=== PATIENT | female | born 1940 | race African-American/Black ===

== ENCOUNTER 2018-04-14 06:06 | Observation (INO) ==
[2018-04-14] MEDS ORDERED: Metoprolol Tartrate 25 MG Tablet PO ONE (06:34)
[2018-04-14] MEDS ORDERED: Chlorhexidine Gluconate 2% 1 Pack (2 Cloths) TOPICAL ONE (06:34)
[2018-04-14] MEDS ORDERED: ceFAZolin 2 GM IV; once IV.SIG PRN (06:37)
[2018-04-14] MEDS ORDERED: fentaNYL Citrate Inj 100 MCG/2 ML Ampul ONE (06:56)
[2018-04-14] MEDS ORDERED: fentaNYL Citrate Inj 250 MCG/5 ML Ampul ONE (06:57)
[2018-04-14] MEDS ORDERED: Sodium Chlor 0.9% Inj 500 ML IV.SIG SCH (07:00)
[2018-04-14] MEDS ORDERED: EPINEPHrine PF/SF Inj 1 MG/ML Ampul I-OCULAR ONE ×2 (07:05→09:27)
[2018-04-14] MEDS ORDERED: Lidocaine 1%/Epinephrine 1:100,000 Inj 20 ML Vial ONE (07:06)
[2018-04-14] MEDS ORDERED: Lidocaine 1%/Epinephrine 1:100,000 Inj 30 ML Vial ONE ×2 (07:06→09:27)
[2018-04-14] MEDS ORDERED: Neostigmine Inj 5 MG/5 ML Syringe IV.PUSH ONE (08:05)
[2018-04-14] MEDS ORDERED: Sodium Chlor 0.9% Inj 250 ML IV.CONT ONE (08:05)
[2018-04-14] MEDS ORDERED: Lidocaine PF 1% Inj 5 ML Syringe INFILTRATN ONE (08:05)
[2018-04-14] MEDS ORDERED: HYDROmorphone PF Inj 1 MG/ML Ampul IV.PUSH PRN (12:52)
[2018-04-14] MEDS ORDERED: Morphine Inj 4 MG/ML Vial ONE ×2 (12:55→13:29)
--- NOTE | 2018-04-14 17:30 | P.PNPLA ---
Subjective Remarks: Patient doing well - vitals normal Pain moderate, good with Rx. Both breasts soft, excellent volume and position, no hematoma, no bleeding on dressings. ALEJANDRA drains light red now. Feels slightly lightheaded - wants to stay in bed. OK. Had dinner and no nausea. Plan to DC tomorrow when family available to get her home. Objective Vital Signs: Vital Signs - 24 hr 04/14/18 07:46 04/14/18 12:22 04/14/18 12:30 Temperature 97.9 F 97.8 F Pulse Rate 76 69 64 Respiratory Rate 17 16 16 Blood Pressure 159/84 H 117/61 117/60 Pulse Oximetry 98 99 99 04/14/18 12:45 04/14/18 12:59 04/14/18 13:00 Temperature Pulse Rate 61 61 Respiratory Rate 16 14 16 Blood Pressure 131/61 140/68 Pulse Oximetry 100 100 04/14/18 13:15 04/14/18 13:18 04/14/18 13:30 Temperature Pulse Rate 58 L 60 58 L Respiratory Rate 16 16 Blood Pressure 130/66 143/69 H Pulse Oximetry 99 100 04/14/18 13:45 04/14/18 14:39 04/14/18 16:00 Temperature 97.8 F 96.4 F L 97.6 F Pulse Rate 58 L 57 L 51 L Respiratory Rate 16 20 22 Blood Pressure 140/69 153/67 H 157/80 H Pulse Oximetry 100 100 95 Intake & Output 04/12/18 04/13/18 04/14/18 04/15/18 06:59 06:59 06:59 06:59 Intake Total 3750 / 3750 Output Total 1080 / 1080 Balance 2670 / 2670 Weight 79.5 kg Laboratory Results: Laboratory Results - last 24 hr 04/14/18 15:31 POC Glucose 131
[2018-04-14] MEDS: ceFAZolin 1 GM Premix Inj 1 GM/50 ML PIGGYBACK IV.SIG SCH (17:51)
[2018-04-14] MEDS ORDERED: ACARBOSE 25 MG PO SCH (18:00)
[2018-04-14] MEDS: Benzocaine/Menthol 15 MG/3.6 MG SF Lozenge BUCCAL PRN ×2 (18:08→21:10)
[2018-04-15] MEDS: Benzocaine/Menthol 15 MG/3.6 MG SF Lozenge BUCCAL PRN ×2 (00:14→06:02)
[2018-04-15] MEDS: ceFAZolin 1 GM Premix Inj 1 GM/50 ML PIGGYBACK IV.SIG SCH (02:58)
--- NOTE | 2018-04-15 05:46 | P.OP ---
Preoperative Diagnosis: Bilateral Hypermastia Postoperative Diagnosis: Bilateral Hypermastia Procedure: Bilateral reduction mammoplasty Anesthesia: GETA Surgeon: Parish Aggarwal MD Estimated blood loss (mL): 25 Operation and Findings: Indications: Bilateral large breasts, even with aging changes - with symptoms , glandular and nipple areolar ptosis. Patient underwent detailed explanation of surgery, shown photos of intraoperative steps, discussed pros, cons, risks and possible complications in detail. Inferior pedicle design explained. Patient understands possible bleeding, tissue loss, flap loss, infection, pain, wound healing problems, abnormal scars, keloids, hyperpigmentation, asymmetry, intermodal customer service changes including mammograms, possible need for future surgeries, possible non-coverage by insurance for any revision breast lift etc. Wants to go ahead with surgery. She is 77 years old and has pain in chest, neck and back from the heavy breasts. Expected reduction of 400 to 500 grams from each was explained. Bra cup size changes may not correlate with her wishes. She mostly is interested in relief of her symptoms. Procedure: Preop markings done in standing position. Neck to nipple at 23 cm, nipple to flap lower end / fold at 10 cm. Patient brought to the OR, anesthesia started, IV antibiotics on, Crooks inserted. Heating blanket and SCD placed and on. Prep and drape done, time out completed. Preop markings reinforced at patiño points with 15 blade scoring. Nipple areola markings done and scored as well. Tumescent mix of lidcaine with epi and saline used to inject the epidermal layers of the inferior pedicle. Lateral and medial skin to be excised with the flaps and reduction. De-epithelization done on the inferior pedicle, periareolar areas and above the areola. Tumescent mix injected in the dissection plane for the upper flaps, along the incision lines and along the lateral and superior breast tissues that were to be removed for hemostasis. Upper flaps elevated, pectoralis fascia exposed and approx 1 inch additional clearing obtained towards clavicles. hemostasis with coag bovie mostly. No acute bleeding or perforators encountered. Medial skin paddle and scarred hidradenitis remnants removed till clean breast tissue level. Lateral and upper and upper medial breast tissue reduction carried out, again taking it down to the chest wall fascia. Hemostasis completed. Lateral flaps tacked to the chest wall along anterior axillary lines with 0 vicryls. Medial and lateral flaps joined at the tips and placed at the center of the breast base along the IMF. Flaps closed with 0. 2/0 and 3/0 Vicryls and 3 /0 Subcuticular prolenes. ALEJANDRA drains were also inserted and brought out at lateral ends of the breast IMF suture lines. Drains secured with nylon sutures. Nipple areolar complexes new position marked with areola marker and symmetry checked with ruler on upper, medial and lower aspects. Skin disks with fat removed, nipple areolae exteriorized, flaps adjusted inside, sutured with 3/0 Vicryls and 4/0 prolenes. Both sides with excellent cleavage, projection and volume symmetry. Tissues removed - Right side 520 grams measured + approx 50 grams of skin/fat excess - total 570 grams. Left side 540 + 50 grams - total 590 grams. EBL less than 25 cc total. Patient remained stable, no complication. Parish Aggarwal MD
[2018-04-15 07:52] VITALS: RESP 18
[2018-04-15 11:38] VITALS: BP 136/69; PULSE 59; TEMP 98.7; O2SAT 93
--- NOTE | 2018-04-15 12:52 | P.PNPLA ---
Subjective Remarks: Doing very well, ambulating, ready to go home. Has all Rx at home. Both breasts soft, no hematoma, no bruising. Flaps good. DC home today Friday next week, Objective Vital Signs: Vital Signs - 24 hr 04/14/18 12:59 04/14/18 13:00 04/14/18 13:15 Temperature Pulse Rate 61 58 L Respiratory Rate 14 16 Blood Pressure 140/68 Pulse Oximetry 100 04/14/18 13:18 04/14/18 13:30 04/14/18 13:45 Temperature 97.8 F Pulse Rate 60 58 L 58 L Respiratory Rate 16 16 16 Blood Pressure 130/66 143/69 H 140/69 Pulse Oximetry 99 100 100 04/14/18 14:39 04/14/18 16:00 04/14/18 18:00 Temperature 96.4 F L 97.6 F Pulse Rate 57 L 51 L Respiratory Rate 20 22 Blood Pressure 153/67 H 157/80 H Pulse Oximetry 100 95 98 04/14/18 20:00 04/15/18 00:00 04/15/18 02:00 Temperature 97.2 F L 97.7 F Pulse Rate 60 64 Respiratory Rate 18 18 17 Blood Pressure 143/69 H 140/74 Pulse Oximetry 97 99 04/15/18 06:00 04/15/18 07:51 04/15/18 11:37 Temperature 99.4 F 98.7 F Pulse Rate 61 59 L Respiratory Rate 18 18 Blood Pressure 154/73 H 136/69 Pulse Oximetry 97 92 L 93 L Intake & Output 04/13/18 04/14/18 04/15/18 04/16/18 06:59 06:59 06:59 06:59 Intake Total 4850 / 4850 Output Total 1125 / 1125 500 / 500 Balance 3725 / 3725 -500 / -500 Weight 83.4 kg Laboratory Results: Laboratory Results - last 24 hr 04/14/18 04/14/18 04/15/18 15:31 20:20 07:21 POC Glucose 131 196 116 04/15/18 11:23 POC Glucose 107
== END 2018-04-15 13:14 | disposition home or self-care (01) ==
LOC: HSDI 06:06 → PHSDC 06:06
PROVIDERS: ADMIT Plastic Surgery; ATTEND Plastic Surgery
DX: R73.03 Prediabetes; F41.9 Anxiety disorder, unspecified; I10 Essential (primary) hypertension; D64.9 Anemia, unspecified; E03.9 Hypothyroidism, unspecified; G47.30 Sleep apnea, unspecified; L73.2 Hidradenitis suppurativa; N62 Hypertrophy of breast
CPT/HCPCS: 82948; 82962; 88305; 88307; 96365; 96366; G0378; J0171; J0690; J1100; J2270; J2370; J2405; J2704; J2710; J3010; J7050; J7120